=== PATIENT | male | born 1950 | race Caucasian/White ===

== ENCOUNTER 2017-06-15 09:27 | Day surgery (SDC) | payer MEDICARE, OTHER ==
[~2017-06-15 09:27] MED LIST: BRIMONIDINE 0.2% OPHTH DROPS 5 ML ONE; TIMOLOL 0.5% OPHTH DROPS ONE
[2017-06-15] MEDS ORDERED: MIDAZOLAM 2 MG/2 ML VIAL IVP ONE (09:28)
[2017-06-15] MEDS ORDERED: LACTATED RINGERS 500 ML IV ONE (09:54)
[2017-06-15] MEDS ORDERED: PROPARACAINE 0.5% OPHTH DROPS 15 ML OPTH ONE ×2 (09:55→10:51)
[2017-06-15] MEDS ORDERED: CYCLOPENTOLATE 1% OPHTH DROPS 2 ML OPTH ONE (09:55)
[2017-06-15] MEDS ORDERED: PHENYLEPHRINE 2.5% OPHTH 2 ML DROPS OPTH ONE (09:55)
[2017-06-15] MEDS ORDERED: KETOROLAC 0.45% OPHTH DROPS OPTH ONE (09:55)
[2017-06-15] MEDS ORDERED: EPINEPHrine 1 MG/ML AMP IVP ONE (10:50)
[2017-06-15] MEDS ORDERED: BRIMONIDINE 0.2% OPHTH DROPS 5 ML OPTH ONE (10:50)
[2017-06-15] MEDS ORDERED: BSS/LIDOCAINE/EPINEPHRINE 1 ML SYRINGE IO ONE (10:51)
[2017-06-15] MEDS ORDERED: CHONDR SULF/HYALURONATE SYRINGE IO ONE (10:51)
[2017-06-15] MEDS ORDERED: TIMOLOL 0.5% OPHTH DROPS OPTH ONE (10:51)
[2017-06-15] MEDS ORDERED: TRIAMCIN/MOXIFLOX/VANCO 1 ML VIAL IO ONE (10:52)
[2017-06-15 11:13] VITALS: BP 126/70
--- NOTE | 2017-06-15 11:27 | OPERATIVE REPORT ---
DATE OF SURGERY: 06/15/2017 00:00:00 PREOPERATIVE DIAGNOSIS: Visually significant cataract, left eye. Cataract surgery was performed on th e right eye on 02/06/2014. POSTOPERATIVE DIAGNOSIS: Visually significant cataract, left eye. Cataract surgery was performed on t he right eye on 02/06/2014. NAME OF PROCEDURE: Phacoemulsification posterior chamber intraocular lens implant, left eye. SURGEON: Rodrigo Velázquez MD. ANESTHESIA: Monitored anesthesia care. COMPLICATIONS: None. OPERATIVE INDICATIONS: This is a 67-year-old man with progressive vision loss in the left eye due to 2+ nuclear sclerotic and 1-2+ posterior subcapsular cataract. Best corrected visual acuity was 20/25 with glare to 20/40 in the left eye. Indications for surgery were overall decrease in vision, difficu lty reading, difficulty driving at night because of headlights from other vehicles. The patient was c onsented at length concerning the risks and benefits of cataract surgery, after which he expressed a desire to proceed with surgery. OPERATIVE PROCEDURE: The patient was taken into OR #2 and placed under monitored anesthesia care. A s urgical time-out was conducted confirming the correct patient, correct procedure and correct surgical site. He was given topical anesthesia and then prepped and draped in the usual sterile fashion. The eye was entered at the 6- and 3 o'clock positions. Intracameral Shugarcaine was injected into the ant erior chamber followed by Viscoat. A continuous tear curvilinear capsulorrhexis was performed. The nu cleus was hydrodissected and phacoemulsified. The cortex was evacuated using automated infusion aspir ation. Provisc was injected into the capsular bag and a 23.0 diopter intraocular lens was inserted in to the bag. Approximately 0.6 mL of a mixture of triamcinolone, moxifloxacin, and vancomycin was inje cted subconjunctivally in the superior quadrant for infection and inflammation prophylaxis. I/A was u sed to evacuate the viscoelastic materials. The eye was inflated to physiologic pressure using balanc ed salt solution and found to be watertight. The patient was taken from the operating room in good co ndition and given postoperative instructions. 11:9:00 JOB #: [id number] EXT JOB #:[id number]
[2017-06-15] MEDS ORDERED: LACTATED RINGERS 1,000 ML IV ONE (11:30)
== END 2017-06-15 09:28 | disposition home or self-care (01) ==
LOC: SDS 09:27
PROVIDERS: ATTEND Ophthalmology
PROC: 08RK3JZ Replacement of Left Lens with Synthetic Substitute, Percutaneous Approach (ICD-10-PCS; principal; 2017-06-15 10:30)
DX: H25.812 Combined forms of age-related cataract, left eye (principal); J45.909 Unspecified asthma, uncomplicated
CPT/HCPCS: 66984; A9270; J7120; V2632

== ENCOUNTER 2018-08-31 08:59 | Outpatient (CLI) | payer MEDICARE, OTHER | END 2018-08-31 09:00 | disposition home or self-care (01) | LOC: DI 08:59 | PROVIDERS: ATTEND Registered Nurse | DX: R01.1 Cardiac murmur, unspecified (principal) | CPT/HCPCS: 93306 ==